=== PATIENT | male | born 1945 | race Caucasian/White ===

== ENCOUNTER 2017-04-06 09:28 | Day surgery (SDC) | payer MEDICARE ==
[~2017-04-06] VITALS: Ht 172.7 cm; Wt 71.2 kg
[~2017-04-06 09:28] MED LIST: ADVI200C5 PO; ALLO100T PO; AMLO5TAB2; ASCO25TA PO; ASPI81CH PO; BENA25CA2 PO; BISO5TAB5; CO Q100C10 PO; COLA100C5 PO; CRES5TAB PO; FISH1000 PO; FOLI1TAB4 PO; LABE20TAB PO; LEVA1TAB2 PO; MAGN400C PO; MIRA3350 PO; MULT1TAB10 PO; NEXI40CA PO; OFLOXACIN 0.3 % (OCUFLOX) OPTH SOL 5ML OS ONE; PHENYLEPHRINE 2.5% OPHTH SOL 2ML OS ONE; PROB1TAB PO; PROPARACAINE 0.5% OPHTH SOL 15ML OS ONE; SLOW142T PO; TROPICAMIDE 1% OPHTH SOLN 2ML OS ONE; VITATAB11 PO; [UNRECOGNIZED DRUG - CODE] PO
[2017-04-06] MEDS ORDERED: CEFUROXIME 1MG/0.1ML INTRACAMERAL INJ As Ordered ONE ×2 (12:24→12:28)
[2017-04-06] MEDS ORDERED: BALANCED SALT IRRIGATION SOLUTION 500ML BAG (FOR OR EYE MACHINE) As Ordered ONE ×2 (12:24→12:28)
[2017-04-06] MEDS ORDERED: MIDAZOLAM INJ 2 MG/2 ML VIAL (J2250) As Ordered ONE (12:24)
[2017-04-06] MEDS ORDERED: POVIDONE-IODINE 5% OPHTH PREP SOL 30ML As Ordered ONE ×2 (12:24→12:28)
[2017-04-06] MEDS ORDERED: ACETYLCHOLINE OPHTH SOLN 1% 2ML (MIOCHOL-E) As Ordered ONE ×2 (12:24→12:28)
[2017-04-06] MEDS ORDERED: LIDOCAINE 0.75%/EPINEPHRINE 0.025% IN BSS 1ML SYR INTRACAMERAL (OR ONLY) As Ordered ONE ×2 (12:24→12:28)
[2017-04-06] MEDS ORDERED: DUOVISC (0.50ML VISCOAT/0.55ML PROVISC) OPHTH KIT As Ordered ONE ×2 (12:25→12:28)
[2017-04-06] MEDS ORDERED: fentaNYL 100 MCG/2 ML INJECTION (J3010) As Ordered ONE (12:25)
[2017-04-06 13:20] VITALS: BP 135/68
[2017-04-06] MEDS ORDERED: ONDANSETRON 4MG/2ML VIAL (J2405) IV PRN (13:30)
[2017-04-06] MEDS ORDERED: ACETAMINOPHEN TAB 650MG DOSE (2X325MG) PO PRN (13:30)
--- NOTE | 2017-04-07 13:08 | RO ---
DATE OF PROCEDURE: 04/06/2017 DATE OF PROCEDURE: 04/06/2017 PREOPERATIVE DIAGNOSIS: Visually significant nuclear sclerotic cataract left eye. POSTOPERATIVE DIAGNOSIS: Visually significant nuclear sclerotic cataract left eye. PROCEDURE: Cataract extraction with use of phacoemulsification and placement of intraocular lens, AU00T0, 23, left eye. SURGEON: Jerry Jefferson DO [employer]PARTMENT MARINE ENGINEER: ANESTHESIA: Local with monitored anesthesia care (MAC). COMPLICATIONS: None. POSTOPERATIVE CONDITION: Stable. INDICATION FOR SURGERY: Blurred vision left eye affecting patient's activities of daily living. DESCRIPTION OF PROCEDURE: The patient was seen in the preoperative area and properly identified. The correct operative eye was identified and marked. Attention was turned to that eye. The patient received topical antibiotics in the preoperative area. The patient then received topical dilating drops consisting of tropicamide and phenylephrine. The patient was then transferred to the operating room. The correct side was re-identified. The patient received topical anesthetics and antibiotics on the surface of the eye. The eye was prepped and draped in a sterile fashion. The upper and lower eyelids were isolated with Tegaderm tape, and the lids were held open with an adjustable speculum. Using a sideport blade, a paracentesis incision was made. Intraocular preservative-free lidocaine was then injected into the anterior chamber. Viscoelastic was then injected into the anterior chamber through the paracentesis. Using a 2.65 mm sharp-tipped keratome, the anterior chamber was entered via a temporal clear corneal incision. A continuous curvilinear capsulorrhexis was created with the aid of a 26-gauge cystotome and Utrata forceps. Hydrodissection was performed with balanced salt solution (BSS) on a blunt cannula until the nucleus was freely mobile. The crystalline lens was phacoemulsified and aspirated. Additional cohesive viscoelastic was placed into the capsular bag to deepen it. An AU00T0 lens was placed into the capsular bag and confirmed by visualizing the continuous curvilinear capsulorrhexis. Additional irrigation and aspiration was used to remove cortical material and remaining viscoelastic. The clear corneal incision was hydrated with BSS on a blunt cannula. The lens was well positioned. The incisions were then tested for leaks and found to be negative. The eye was then palpated for appropriate pressure and adjusted accordingly with BSS. The eyelid speculum was carefully removed. TobraDex ointment was placed in the eye. An eye patch and shield were then secured over the eye. The patient tolerated the procedure well and was discharged to the recovery unit in a stable condition.
== END 2017-04-06 13:46 | disposition home or self-care (01) ==
LOC: M SDC 09:28
PROVIDERS: ATTEND Ophthalmology
DX: H25.12 Age-related nuclear cataract, left eye (principal); I25.2 Old myocardial infarction; Z85.118 Personal history of other malignant neoplasm of bronchus and lung; Z92.3 Personal history of irradiation; Z92.21 Personal history of antineoplastic chemotherapy; Z95.5 Presence of coronary angioplasty implant and graft; I10 Essential (primary) hypertension; J44.9 Chronic obstructive pulmonary disease, unspecified; Z87.891 Personal history of nicotine dependence; Z88.5 Allergy status to narcotic agent; Z88.8 Allergy status to other drugs, medicaments and biological substances; Z79.899 Other long term (current) drug therapy; Z79.82 Long term (current) use of aspirin
CPT/HCPCS: 66984; J2250; J3010; V2632

== ENCOUNTER → 2018-08-16 | Outpatient (REF) | payer MEDICARE ==
[~2018-08-16] MED LIST changes: -AMLO5TAB2; +AMLO5TAB6; -ASCO25TA PO; -ASPI81CH PO; +ASPI81CH49 PO; +FOLI1TAB11 PO; -FOLI1TAB4 PO; -OFLOXACIN 0.3 % (OCUFLOX) OPTH SOL 5ML OS ONE; -PHENYLEPHRINE 2.5% OPHTH SOL 2ML OS ONE; -PROPARACAINE 0.5% OPHTH SOL 15ML OS ONE; -TROPICAMIDE 1% OPHTH SOLN 2ML OS ONE; +VITA1TAB23 PO
[2018-08-16 18:17] LABS: APPEARANCE, URINE HAZY (CLEAR); BACTERIA, URINE AUTO NEGATIVE (NEGATIVE); BILIRUBIN, URINE AUTO NEGATIVE (NEGATIVE); BLOOD, URINE BLOOD NEGATIVE (NEGATIVE); GLUCOSE, URINE (UA) AUTO NEGATIVE (NEGATIVE); KETONE, URINE AUTO NEGATIVE (NEGATIVE); LEUKOCYTE ESTERASE, URINE AUTO NEGATIVE (NEGATIVE); NITRITE, URINE AUTO NEGATIVE (NEGATIVE); PROTEIN, URINE AUTO NEGATIVE (NEGATIVE); RBC, URINE AUTO 1 /HPF (0-3); SQUAMOUS EPITHELIAL CELL UR AU 0 /HPF (0-6); UROBILINOGEN, URINE AUTO 0.2 mg/dL (0.0-2.0); WBC, URINE AUTO 0 /HPF (0-3)
[2018-08-16 18:24] LABS: COLOR, URINE YELLOW (YELLOW)
== END ==
LOC: M SMT 17:15
PROVIDERS: ATTEND Nurse Practitioner Family
DX: N13.30 Unspecified hydronephrosis (principal)
CPT/HCPCS: 81001; 87086; 88108; G0463

== ENCOUNTER → 2018-09-29 | Outpatient (REF) ==
[2018-09-29 14:01] LABS: ALBUMIN 3.5 GM/DL (3.2-5.2); BILIRUBIN,TOTAL 0.3 MG/DL (0.2-1.0); CALCIUM LEVEL 9.5 MG/DL (8.8-10.2); CREATININE FOR GFR 1.28 MG/DL (0.70-1.30); GLOMERULAR FILTRATION RATE 58.5 (>42); MAGNESIUM LEVEL 2.2 MG/DL (1.8-2.4); POTASSIUM SERUM 4.4 MEQ/L (3.5-5.1); TOTAL PROTEIN 6.3 GM/DL (6.4-8.2)
== END ==
LOC: M LAB REF 03:03
DX: Z00.00 Encounter for general adult medical examination without abnormal findings (principal)

== ENCOUNTER 2018-11-23 12:00 | Day surgery (SDC) | payer MEDICARE ==
[~2018-11-23] VITALS: Ht 172.7 cm; Wt 68.0 kg
[~2018-11-23 12:00] MED LIST changes: +ADV250INH INH; -BISO5TAB5; +BISO5TAB5 PO; +BRIL90TA PO; +BUSP5TAB81 PO; +CINNOIL4 XX; +CIPROFLOXACIN 400 MG in APPROPRIATE DILUENT 1 EA IV ONE; +D3 U5000 PO; +DOXY-350 PO; +FLAV3.7O MC; +LIDOCAINE 1% MDV 20ML VIAL SQ PRN; +LISI-542 PO; +LR 1,000 ML IV ONE; +MULTCAP PO; +NERVE PO; +NORV5TAB PO; +OMEG10002 PO; +PURE500C5 PO; +RA B1TAB7 PO; +ROSU5TAB5 PO; +[UNRECOGNIZED DRUG - OTHER] PO; +mitoMYcin 40MG VIAL (J9280 PER 5MG) INTRAVESIC ONE
[2018-11-23] MEDS ORDERED: ENOX80IN3 SUBQ (13:14)
[2018-11-23] MEDS ORDERED: ROCURONIUM BROMIDE 50 MG/5 ML VIAL As Ordered ONE (16:05)
[2018-11-23] MEDS ORDERED: LIDOCAINE 2% INJ 100 MG/5 ML SDV (FOR ANES.) As Ordered ONE (16:05)
[2018-11-23] MEDS ORDERED: PROPOFOL 200 MG/20 ML VIAL As Ordered ONE (16:05)
[2018-11-23] MEDS ORDERED: dexameTHASONE 4 MG/ML 1ML VIAL (J1100) As Ordered ONE (16:06)
[2018-11-23] MEDS ORDERED: fentaNYL 250 MCG/5 ML INJECTION (J3010) As Ordered ONE (16:06)
[2018-11-23] MEDS ORDERED: ONDANSETRON 4MG/2ML VIAL (J2405) As Ordered ONE (16:06)
[2018-11-23] MEDS ORDERED: MIDAZOLAM INJ 2 MG/2 ML VIAL (J2250) As Ordered ONE (16:07)
[2018-11-23] MEDS ORDERED: SUGAMMADEX SODIUM 500 MG/5 ML VIAL (BRIDION) As Ordered ONE (17:29)
[2018-11-23] MEDS ORDERED: ACETAMINOPHEN TAB 650MG DOSE (2X325MG) PO PRN (18:15)
[2018-11-23] MEDS ORDERED: LR 1,000 ML IV SCH (18:15)
[2018-11-23] MEDS ORDERED: ONDANSETRON 4MG/2ML VIAL (J2405) IV PRN (18:15)
[2018-11-23] MEDS ORDERED: fentaNYL 100 MCG/2 ML INJECTION (J3010) IV PRN (18:15)
[2018-11-23 20:00] VITALS: BP 121/66
--- NOTE | 2018-11-26 16:23 | RO ---
DATE OF PROCEDURE: 11/23/2018 PREPROCEDURE DIAGNOSIS: Bladder tumor. POSTPROCEDURE DIAGNOSIS: Bladder tumor. PROCEDURE: Cystoscopy, transurethral resection of bladder tumor (between 2 and 5 cm), intravesical Mitomycin C instillation, examination under anesthesia. SURGEON: Arturo Kerns MD CENTRAL COMMUNICATIONS SPECIALIST: None. ANESTHESIA: General. OPERATIVE INDICATIONS: This is a 73-year-old male who was found to have an approximately 2 cm size papillary tumor on the left lateral wall on office cystoscopy. He was brought to the operating room today for the above listed procedure. DESCRIPTION OF PROCEDURE: The patient was brought to the operating room and general anesthesia was induced. Prophylactic antibiotics were infused. He was then placed in the dorsal lithotomy position and then a bimanual digital rectal examination under anesthesia was performed. It was negative for palpable bladder masses. The bladder was freely mobile. There were no prostate nodules. At this point, the patient was prepped and draped in the usual sterile fashion. We then inserted a resectoscope into the urethral meatus and advanced into the bladder using the visual obturator. The bladder was then thoroughly examined, and the only abnormality seen was an approximately 2 cm size papillary tumor in the left bladder wall. This tumor was then completely resected making sure to get samples down to the muscle layer of the bladder. All of the specimen was then removed from the bladder to be sent off for pathologic analysis. Once that was done, we then cauterized the base of resection until there was good hemostasis. Once satisfied with hemostasis, the resectoscope was removed, and an 18-Gabonese three-way catheter was inserted to the bladder. The balloon was filled with 30 mL of sterile water. We then connected the irrigation port to a bag and clamped it off. I then instilled 40 mg of Mitomycin C into the bladder gently and then a catheter plug was placed. This marked the conclusion of the procedure. The patient was taken out of the dorsal lithotomy position, awakened from anesthesia, and transferred to the recovery room in stable condition. Estimated blood loss: 5 mL. Complications: None. Specimens: Bladder tumor. Plan: The patient will keep the Mitomycin C in his bladder for an hour, and then will allow it to drain out. Following that, will allow a liter of saline to drain through the bladder. He will then be discharged home and followup in the clinic next week for catheter removal and pathology results.
== END 2018-11-25 20:20 | disposition home or self-care (01) ==
LOC: M SDC 12:00
PROVIDERS: ATTEND Urology
DX: C67.2 Malignant neoplasm of lateral wall of bladder (principal); I25.10 Atherosclerotic heart disease of native coronary artery without angina pectoris; I25.2 Old myocardial infarction; Z95.5 Presence of coronary angioplasty implant and graft; Z79.02 Long term (current) use of antithrombotics/antiplatelets; Z87.891 Personal history of nicotine dependence; Z88.8 Allergy status to other drugs, medicaments and biological substances; Z85.118 Personal history of other malignant neoplasm of bronchus and lung; J44.9 Chronic obstructive pulmonary disease, unspecified; Z92.21 Personal history of antineoplastic chemotherapy; Z92.3 Personal history of irradiation
CPT/HCPCS: 51720; 52235; 88307; J0744; J1100; J2250; J2405; J3010; J9280

== ENCOUNTER → 2019-02-25 | Outpatient (REF) | payer MEDICARE ==
[~2019-02-25] MED LIST changes: -BISO5TAB5 PO; +BISO5TAB9 PO; -CIPROFLOXACIN 400 MG in APPROPRIATE DILUENT 1 EA IV ONE; +ENOX80IN3 SUBQ; -LIDOCAINE 1% MDV 20ML VIAL SQ PRN; -LR 1,000 ML IV ONE; -mitoMYcin 40MG VIAL (J9280 PER 5MG) INTRAVESIC ONE
== END ==
LOC: M SMT 13:25
PROVIDERS: ATTEND Urology
DX: C67.9 Malignant neoplasm of bladder, unspecified (principal)

== ENCOUNTER → 2019-06-03 | Outpatient (REF) | payer MEDICARE ==
[~2019-06-03] MED LIST changes: +BISO5TAB14 PO; -BISO5TAB9 PO
== END ==
LOC: M SMT 13:35
PROVIDERS: ATTEND Urology
DX: C67.9 Malignant neoplasm of bladder, unspecified (principal)